=== PATIENT | male | born 1985 | race Caucasian/White ===

== ENCOUNTER 2019-04-14 19:21 | Emergency (ER) ==
[2019-04-14 19:32] VITALS: BP 131/83; TEMP 99.3; BMI 25.0
[2019-04-14] MEDS ORDERED: SODIUM CHLORIDE 1,000 ML IV STA ×2 (19:36→21:04)
[2019-04-14] MEDS ORDERED: PHENERGAN 25 MG/ML VIAL 25 MG in SODIUM CHLORIDE 50 ML IV STA (19:37)
[2019-04-14] MEDS ORDERED: DEMEROL 25 MG/ML VIAL IVP STA (19:37)
[2019-04-14] MEDS ORDERED: PHENERGAN 25 MG/ML VIAL ONE (19:49)
[2019-04-14] MEDS ORDERED: PEPCID IVP STA (20:00)
--- NOTE | 2019-04-14 20:13 | CT ---
EXAM: CT of the abdomen pelvis without contrast History: Upper abdominal pain with nausea and vomiting. Technique: Multiplanar CT images through the abdomen pelvis were obtained without the administration of IV contrast Findings: There is motion artifact which limits evaluation. Lung bases are free of consolidation. No acute osseous abnormalities are identified within limitations of the motion artifact. No renal stones and no hydronephrosis. There is mild circumferential wall thickening of the distal e sophagus and tiny hiatal hernia. Gallbladder is contracted. No focal liver or splenic lesions. No pablo peripancreatic inflammation. Adrenal glands are unremarkable. The visualized appendix is not dilated or inflamed. Nondilated fluid filled loops of both large and small bowel. No free air and n o ascites. No evidence for bowel obstruction. No abdominal aortic aneurysm. No bladder wall thicke karlos. Bladder is not well distended. Prostate is not enlarged. No perirectal inflammation Impression: 1. Mild gastroenteritis. No bowel obstruction. 2. Tiny hiatal hernia and mild circumferential wall thickening of the distal esophagus could indicat e reflux esophagitis
--- NOTE | 2019-04-14 20:43 | ED.PDOC ---
General ED Provider: Dr. JUAN VALLEJO-ER Chief Complaint: Nausea/Vomiting Stated Complaint: hes had vomiting and diarrhea Time Seen by Physician: 19:25 Mode of Arrival: Walk-In Information Source: Patient, Family Exam Limitations: No limitations Nursing and Triage Documentation Reviewed and Agree: Yes Does patient meet sepsis criteria?: No System Inflammatory Response Syndrome: Not Applicable Sepsis Protocol: For patient's 13 years and over: Temp is 96.8 and below OR 101 and greater Pulse >90 BPM Resp >20/minute Acutely Altered Mental Status Are patient's symptoms suggestive of a new infection, such as: -Pneumonia -Skin, Soft Tissue -Endocarditis -UTI -Bone, Joint Infection -Implantable Device -Acute Abdominal Infection -Wound Infection -Meningitis -Blood Stream Catheter Infection -Unknown GI Complaint Exam - Vomiting/Diarrhea Complaint/Exam Onset/Duration: 4 hours Symptoms Are: Still present Initial Severity: Mild Current Severity: Moderate Character of Vomiting: Reports: Non-bilious Character of Diarrhea: Reports: Watery Aggravating: Reports: Food Alleviating: Reports: None Associated Signs and Symptoms: Reports: Abdominal pain, Cramping Kussmaul Respirations Present: No Differential Diagnoses: Dehydration, Viral Gastroenteritis, Bacterial Gastroenteritis Review of Systems - Review Of Systems Constitutional: Reports: No symptoms Eyes: Reports: No symptoms Ears, Nose, Mouth, Throat: Reports: No symptoms Respiratory: Reports: No symptoms Cardiac: Reports: No symptoms GI: Reports: Abdominal pain, Diarrhea, Nausea, Vomiting : Reports: No symptoms Musculoskeletal: Reports: No symptoms Skin: Reports: No symptoms Neurological: Reports: No symptoms Endocrine: Reports: No symptoms Hematologic/Lymphatic: Reports: No symptoms All Other Systems: Reviewed and Negative Past Medical History - Past Medical History Previously Healthy: No Endocrine: Reports: Unknown Cardiovascular: Reports: Unknown Respiratory: Reports: Unknown Hematological: Reports: Unknown Gastrointestinal: Reports: Unknown Genitourinary: Reports: Unknown Neuro/Psych: Reports: Unknown Musculoskeletal: Reports: Unknown Cancer: Reports: Unknown - Surgical History General Surgical History: Reports: Unknown - Family History Family History: Reports: Unknown - Social History Smoking Status: Current every day smoker, Heavy tobacco smoker Hx Substance Use: No Alcohol Screening: None - Immunizations Tetanus Shot up to Date: Yes Physical Exam - Physical Exam Appearance: Well-appearing, No pain distress, Well-nourished Pain Distress: Mild Eyes: AREN, EOMI, Conjunctiva clear ENT: Ears normal Neck: Supple Respiratory: Airway patent, Breath sounds clear, Breath sounds equal, Respirations nonlabored Cardiovascular: RRR, Pulses normal, No rub, No murmur GI/: Soft, Nontender, No masses, Bowel sounds normal, No Organomegaly Musculoskeletal: Normal strength, ROM intact, No edema, No calf tenderness Skin: Warm, Dry, Normal color Neurological: Sensation intact, Motor intact, Reflexes intact, Cranial nerves intact, Alert, Oriented Psychiatric: Affect appropriate, Mood appropriate Interpretation - Radiology Interpretation Radiology Interpretation By: Radiologist Radiology Results: Negative Exam Interpreted: CT Scan - EKG Interpretation Time of EKG #1: 20:43 Rate: Normal Rhythm: Sinus Ectopy: None [place]: NL ST Segment: Normal Interpretation: nsr Re-Evaluation - Re-Evaluation Time of Re-Evaluation: 04:18 Status: Improved (tolerating liquids without vomiting or abd pain) Vital Signs Stable: Yes Pain Level: 0 Appearance: NAD Lungs: Clear Skin: Warm and Dry Neuro: Alert and Oriented X3 CV: RRR Critical Care Note - Critical Care Note Total Time (mins): 0 Course - Course Hematology/Chemistry: 04/14/19 20:16 04/14/19 20:16 Orders, Labs, Meds: Lab Review 04/14/19 04/14/19 04/14/19 19:51 20:16 20:16 WBC 15.52 H RBC 5.05 Hgb 15.8 Hct 45.3 MCV 89.7 MCH 31.3 H MCHC 34.9 RDW Coeff of Singh 12.1 Plt Count 263 Immature Gran % (Auto) 0.5 Neut % (Auto) 80.6 Lymph % (Auto) 13.5 [place] % (Auto) 4.2 Eos % (Auto) 0.5 Baso % (Auto) 0.7 Immature Gran # (Auto) 0.1 Neut # (Auto) 12.5 H Lymph # (Auto) 2.1 [place] # (Auto) 0.7 Eos # (Auto) 0.1 Baso # (Auto) 0.1 ESR 5 Sodium 141.9 Potassium 3.83 Chloride 104.8 Carbon Dioxide 24.6 Anion Gap 16.33 BUN 9.1 Creatinine 0.95 Estimated GFR (MDRD) 90.00 BUN/Creatinine Ratio 9.57 Glucose 139.8 H Lactic Acid Calcium 10.40 H Total Bilirubin 0.46 AST 30.7 ALT 24.3 Alkaline Phosphatase 67.2 Total Creatine Kinase 90.2 Troponin I < 0.012 Total Protein 8.81 H Albumin 5.23 H Globulin 3.58 Albumin/Globulin Ratio 1.46 Amylase 69.2 Lipase 45.4 Procalcitonin Urine Color Urine Clarity Urine pH Ur Specific [place] Urine Protein Urine Glucose (UA) Urine Ketones Urine Blood Urine Nitrite Urine Bilirubin Urine Urobilinogen Ur Leukocyte Esterase Urine Microscopic RBC Urine Microscopic WBC Ur Squamous Epith Cells Urine Mucus Influ A Molecular Assay Negative by naat Influ B Molecular Assay Negative by naat 04/14/19 04/14/19 04/14/19 20:16 20:16 23:45 WBC RBC Hgb Hct MCV MCH MCHC RDW Coeff of Singh Plt Count Immature Gran % (Auto) Neut % (Auto) Lymph % (Auto) [place] % (Auto) Eos % (Auto) Baso % (Auto) Immature Gran # (Auto) Neut # (Auto) Lymph # (Auto) [place] # (Auto) Eos # (Auto) Baso # (Auto) ESR Sodium Potassium Chloride Carbon Dioxide Anion Gap BUN Creatinine Estimated GFR (MDRD) BUN/Creatinine Ratio Glucose Lactic Acid 1.73 Calcium Total Bilirubin AST ALT Alkaline Phosphatase Total Creatine Kinase Troponin I Total Protein Albumin Globulin Albumin/Globulin Ratio Amylase Lipase Procalcitonin < 0.05 Urine Color Yellow Urine Clarity Clear Urine pH 7.5 Ur Specific [place] 1.020 Urine Protein Trace Urine Glucose (UA) Negative Urine Ketones 1+ Urine Blood Negative Urine Nitrite Negative Urine Bilirubin Negative Urine Urobilinogen 0.2 Ur Leukocyte Esterase Negative Urine Microscopic RBC 0-2 Urine Microscopic WBC 0-2 Ur Squamous Epith Cells 0-2 Urine Mucus 2+ Influ A Molecular Assay Influ B Molecular Assay Orders Category Date Time Status EKG-(ED ONLY) Stat CARDIO 04/14/19 19:35 Completed ED HORSE IDENTIFIER APPLIED .ONCE EMERGENCY 04/14/19 19:36 Active ED IV/MEDIPORT/POWERPORT .ONCE EMERGENCY 04/14/19 19:36 Active AMYLASE Stat LAB 04/14/19 20:16 Completed BLOOD CULTURE (ED ONLY) Stat LAB 04/14/19 20:10 Received CBC W/ AUTO DIFF Stat LAB 04/14/19 20:16 Completed COMPREHENSIVE METABOLIC PANEL Stat LAB 04/14/19 20:16 Completed CREATINE KINASE Stat LAB 04/14/19 20:16 Completed ESR Stat LAB 04/14/19 20:16 Completed FLU A/B MOLECULAR Stat LAB 04/14/19 19:51 Completed LACTIC ACID Stat LAB 04/14/19 20:16 Completed LIPASE Stat LAB 04/14/19 20:16 Completed MOLECULAR GROUP A STREP Stat LAB 04/14/19 19:51 Completed PROCALCITONIN Stat LAB 04/14/19 20:16 Completed TROPONIN I Stat LAB 04/14/19 20:16 Completed URINALYSIS C & S IF INDICATED Stat LAB 04/14/19 23:45 Completed 0.9 % Sodium Chloride [Saline Flush] MEDS 04/14/19 19:35 Active 1 syr IVF PRN PRN Famotidine Inj [Pepcid] MEDS 04/14/19 20:00 Discontinued 20 mg IVP ONCE STA Hydromorphone HCl [Dilaudid 1 mg/ml Syringe] MEDS 04/14/19 21:54 Discontinued 1 mg IVP ONCE STA Meperidine HCl/Pf [Demerol 25 mg/ml Vial] MEDS 04/14/19 19:37 Discontinued 25 mg IVP ONCE STA Ondansetron HCl/Pf [Zofran 4 mg/2 ml] MEDS 04/14/19 21:54 Discontinued 4 mg IVP ONCE STA Promethazine HCl [Phenergan 25 mg/ml Vial] MEDS 04/14/19 19:49 Discontinued 25 mg .ROUTE .STK-MED ONE Promethazine HCl [Phenergan 25 mg/ml Vial] 25 mg MEDS 04/14/19 19:37 Discontinued 0.9 % Sodium Chloride [Sodium Chloride] 50 ml IV ONCE Sodium Chloride 0.9% [Sodium Chloride] 1,000 ml MEDS 04/14/19 19:36 Discontinued IV BOLUS Sodium Chloride 0.9% [Sodium Chloride] 1,000 ml MEDS 04/14/19 21:[address] ABDOMEN/PELVIS WO CONTRAST Stat RADS 04/14/19 19:37 Completed Medications Generic Name Dose Route Start Last Admin Trade Name Freq PRN Reason Stop Dose Admin Sodium Chloride 1 syr 04/14/19 19:35 04/14/19 20:13 Saline Flush IVF 1 syr PRN PRN Administration To flush IV Discontinued Medications Generic Name Dose Route Start Last Admin Trade Name Freq PRN Reason Stop Dose Admin Famotidine 20 mg 04/14/19 20:00 04/14/19 21:06 Pepcid IVP 04/14/19 20:01 20 mg ONCE STA Administration Hydromorphone HCl 1 mg 04/14/19 21:54 04/14/19 22:17 Dilaudid 1 Mg/Ml Syringe IVP 04/14/19 21:55 1 mg ONCE STA Administration Promethazine HCl 25 mg/ Sodium 51 mls @ 75 mls/hr 04/14/19 19:37 04/14/19 20: 13 Chloride IV 04/14/19 20:17 75 mls/hr ONCE STA Administration Sodium Chloride 1,000 mls @ 1,000 mls/hr 04/14/19 19:36 04/14/19 20:12 Sodium Chloride IV 04/14/19 20:35 1,000 mls/hr BOLUS STA Administration Sodium Chloride 1,000 mls @ 250 mls/hr 04/14/19 21:04 04/14/19 21:55 Sodium Chloride IV 04/15/19 01:03 250 mls/hr BOLUS STA Administration Meperidine HCl 25 mg 04/14/19 19:37 04/14/19 20:14 Demerol 25 Mg/Ml Vial IVP 04/14/19 19:38 25 mg ONCE STA Administration Ondansetron HCl 4 mg 04/14/19 21:54 04/14/19 22:17 Zofran 4 Mg/2 Ml IVP 04/14/19 21:55 4 mg ONCE STA Administration Vital Signs: Temp Pulse Resp BP Pulse Ox 04/14/19 19:22 99.3 F 70 20 131/83 99 Departure - Departure Time of Disposition: :19 Disposition: HOME SELF-CARE Discharge Problem: Abdominal pain Qualifiers: Abdominal location: upper abdomen, unspecified Qualified Code(s): R10.10 - Upper abdominal pain, unspecified Instructions: Abdominal Pain (ED) Condition: Good Pt referred to PMD for follow-up: Yes IPMP verified?: No Additional Instructions: avoid dairy for 3 days---zofran 4mg q 4hrs prn nausea #6---f/u with pcp and get gb xrays--return if symptoms worsen Allergies/Adverse Reactions: Allergies No Known Drug Allergies Adverse Reaction (Verified 04/14/19 19:32) Home Medications: Ambulatory Orders 1 [Unobtainable] 04/14/19 Disposition Discussed With: Patient, Family
[2019-04-14] MEDS ORDERED: ZOFRAN 4 MG/2 ML IVP STA (21:54)
[2019-04-14] MEDS ORDERED: DILAUDID 1 MG/ML SYRINGE IVP STA (21:54)
== END 2019-04-15 04:29 | disposition home or self-care (01) ==
LOC: ED 19:21
DX: R10.10 Upper abdominal pain, unspecified (principal); R11.2 Nausea with vomiting, unspecified; R19.7 Diarrhea, unspecified; F17.210 Nicotine dependence, cigarettes, uncomplicated
CPT/HCPCS: 36415; 80053; 81001; 82150; 82550; 83605; 83690; 84145; 84484; 85025; 85651; 87040; 87502; 87651; 93005; 93010; 96361; 96365; 96375; 99283